=== PATIENT | female | born 1975 | race Caucasian/White ===

== ENCOUNTER → 2016-11-21 | Outpatient (CLI) | payer OTHER | LOC: CARD 08:10 | PROVIDERS: ATTEND Obstetrics & Gynecology | DX: R00.2 Palpitations (principal) | CPT/HCPCS: 93005 ==

== ENCOUNTER → 2020-12-16 | Outpatient (CLI) | payer BC ==
--- NOTE | 2020-12-16 11:12 | Diagnostic Imaging Report ---
PROCEDURE: Pelvic comp/transvaginal sonogram. TECHNIQUE: Complete transabdominal and transvaginal pelvic ultrasound was performed. In addition, limited pelvic Doppler was performed. INDICATION: Excessive and frequent menstruation. Uterus is anteverted measuring 8.4 x 4.7 x 5.5 cm. Endometrium is 4 mm in thickness. There is an area of heterogeneity in the anterior uterine body approximately 1 cm in size, likely a small fibroid. Right ovary cannot be visualized due to bowel gas. Left ovary measures 4.4 x 3.5 x 3.8 cm. A left ovary does contain a septated cyst measuring 3.6 x 3.0 x 3.2 cm. There is blood flow to the left ovary. No free fluid is identified. IMPRESSION: 1. Small uterine fibroid. 2. Nonvisualized right ovary. 3. 3.6 x 3.0 similar septated left ovarian cyst. Followup in 6-8 weeks could be performed to confirm clearing. Dictated by: Dictated on workstation # [id number]
--- NOTE | 2020-12-19 15:31 | Diagnostic Imaging Report ---
INDICATION: Routine screening. COMPARISON: 10/20/2018 and 12/02/2017. TECHNIQUE: 2D and 3D bilateral screening mammography was performed with CAD. FINDINGS: Both breasts show marked parenchymal heterogeneity and increased density, limiting the sensitivity of mammography. There are multiple circumscribed masses throughout both breasts which have been shown to represent cysts previously. There are benign calcifications scattered throughout both breasts. No spiculated mass or malignant appearing microcalcifications are seen. The axillae are unremarkable. IMPRESSION: No mammographic features suspicious for malignancy are identified. ACR BI-RADS Category 2: Benign findings. Result letter will be mailed to the patient. Note: At least 10% of breast cancer is not imaged by mammography. Dictated by: Dictated on workstation # [id number]
== END ==
LOC: RAD 09:45
PROVIDERS: ATTEND Nurse Practitioner Family
DX: Z12.31 Encounter for screening mammogram for malignant neoplasm of breast (principal); D25.9 Leiomyoma of uterus, unspecified; N83.202 Unspecified ovarian cyst, left side; Z80.3 Family history of malignant neoplasm of breast
CPT/HCPCS: 76830; 76856; 77063; 77067

== ENCOUNTER → 2021-04-14 | Outpatient (CLI) | payer BC ==
--- NOTE | 2021-04-14 14:08 | Diagnostic Imaging Report ---
PROCEDURE: CT abdomen and pelvis without contrast. TECHNIQUE: Multiple contiguous axial images were obtained through the abdomen and pelvis without the use of intravenous contrast. Auto Exposure Controls were utilized during the CT exam to meet ALARA standards for radiation dose reduction. INDICATION: Frequent urinary tract infections and microhematuria. COMPARISON: No prior studies are available for comparison. FINDINGS: The lung bases are clear. The liver and gallbladder are unremarkable. There is no biliary ductal dilatation. The pancreas and spleen are unremarkable. No adrenal mass is detected. The right kidney contains a 2 mm nonobstructing calculus in the upper pole. Left kidney is unremarkable. No definite ureteral calculi or hydronephrosis is seen. Aorta is nonaneurysmal. Bowel loops are normal in caliber. There is no obstruction. No free fluid or fluid collection is seen. The uterus and bladder are unremarkable. 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 IMPRESSION: 1. Tiny non-nonobstructing right renal calculus. No ureteral calculi or hydronephrosis is detected. 2. Study is otherwise unremarkable. Dictated by: Dictated on workstation # [id number]
== END ==
LOC: RAD 11:45
PROVIDERS: ATTEND Urology
DX: N20.0 Calculus of kidney (principal)
CPT/HCPCS: 74176

== ENCOUNTER → 2022-01-26 | Outpatient (CLI) | payer BC ==
--- NOTE | 2022-01-26 13:18 | Diagnostic Imaging Report ---
Indication: Routine screening. Comparison is made with prior mammograms from 12/16/2020 and 10/20/2018. 2-D and 3-D bilateral screening mammography was performed with CAD. Both breasts are heterogeneously dense, limiting the sensitivity of mammography. Circumscribed rounded masses are again noted suggestive of cysts. There are scattered benign calcifications. No spiculated mass or malignant-appearing microcalcifications are seen. Axillae are unremarkable. IMPRESSION: BI-RADS Category 2 No mammographic features suspicious for malignancy are identified. ACR BI-RADS Category 2: Benign findings. Result letter will be mailed to the patient. Note: At least 10% of breast cancer is not imaged by mammography. Dictated by: Dictated on workstation # [id number]
== END ==
LOC: RAD 10:30
PROVIDERS: ATTEND Obstetrics & Gynecology
DX: Z12.31 Encounter for screening mammogram for malignant neoplasm of breast (principal)
CPT/HCPCS: 77063; 77067

== ENCOUNTER → 2022-05-07 | Outpatient (CLI) | payer BC ==
--- NOTE | 2022-05-07 11:14 | Diagnostic Imaging Report ---
PROCEDURE: CT abdomen and pelvis without contrast. TECHNIQUE: Multiple contiguous axial images were obtained through the abdomen and pelvis without the use of intravenous contrast. Auto Exposure Controls were utilized during the CT exam to meet ALARA standards for radiation dose reduction. INDICATION: Hematuria. Comparison is made with prior CT from 04/14/2021. The lung bases are clear. The liver, gallbladder, pancreas, spleen and adrenal glands are unremarkable. Previously noted small nonobstructing calculus in the upper pole right kidney is again noted. No ureteral or bladder calculi are detected. Aorta is nonaneurysmal. The bowel loops are normal caliber. There is no obstruction. There is no ascites. Uterus is unremarkable. The bony structures are nonacute. Spondylolysis and spondylolisthesis at L5-S1 is again noted. IMPRESSION: Stable noncontrast CT of the abdomen and pelvis when compared with examination one year earlier. Nonobstructive calculus on the right is again noted. There is no ureteral calculi or hydronephrosis. Dictated by: Dictated on workstation # [id number]
== END ==
LOC: RAD 09:45
PROVIDERS: ATTEND Urology
DX: N20.0 Calculus of kidney (principal)
CPT/HCPCS: 74176

== ENCOUNTER 2022-06-01 05:30 | Outpatient (CLI) | payer BC ==
[~2022-06-01] VITALS: Ht 159 cm; Wt 77.0 kg
[2022-06-01] MEDS ORDERED: RT-ALBUINH INH (16:22)
[2022-06-01] MEDS ORDERED: NORE0.3561 PO (16:22)
== END 2022-06-01 16:43 | disposition home or self-care (01) ==
LOC: PREOP 05:30
PROVIDERS: ATTEND Obstetrics & Gynecology
DX: Z01.818 Encounter for other preprocedural examination (principal)

== ENCOUNTER 2022-06-08 06:08 | Day surgery (SDC) | payer BC ==
[~2022-06-08] VITALS: Ht 159 cm; Wt 77.0 kg
[2022-06-08] VITALS (12 sets, daily range): BP systolic 83–125; BP diastolic 59–80
[~2022-06-08 06:08] MED LIST: NORE0.3561 PO; RT-ALBUINH INH
[2022-06-08] MEDS ORDERED: ceFAZolin INJECTION 1,000 MG in NS (IVPB) 50 ML IV ONE (06:15)
[2022-06-08] MEDS ORDERED: LACTATED RINGERS 1,000 ML IV PRN (06:15)
[2022-06-08] MEDS ORDERED: LIDOCAINE/EPI 1%-1:100,000 (XYLOCAINE) 10 ML ONE (06:53)
[2022-06-08] MEDS ORDERED: ESTRADIOL VAGINAL CREAM 42.5 GM (ESTRACE) VG ONE (06:53)
[2022-06-08 06:56] LABS: BASOPHILS % (AUTO) 1 % (0-10); EOSINOPHILS % (AUTO) 1 % (0-10); HEMATOCRIT 39 % (35-52); HEMOGLOBIN 13.3 g/dL (11.5-16.0); LYMPHOCYTES # (AUTO) 2.1 10^3/uL (1.0-4.0); LYMPHOCYTES % (AUTO) 26 % (12-44); MEAN CORPUSCULAR HEMOGLOBIN 32 pg (25-34); MEAN CORPUSCULAR HGB CONC 34 g/dL (32-36); MEAN CORPUSCULAR VOLUME 95 fL (80-99); MEAN PLATELET VOLUME 9.3 fL (9.0-12.2); MONOCYTES # (AUTO) 0.5 10^3/uL (0.0-1.0); MONOCYTES % (AUTO) 6 % (0-12); NEUTROPHILS # (AUTO) 5.6 10^3/uL (1.8-7.8); NEUTROPHILS % (AUTO) 67 % (42-75); PLATELET COUNT 286 10^3/uL (130-400); WHITE BLOOD COUNT 8.3 10^3/uL (4.3-11.0)
--- NOTE | 2022-06-08 07:20 | Progress Note-Pre Operative ---
Pre-Operative Progress Note Date of Available H&P: Jun 08, 2022 Date H&P Reviewed: Jun 08, 2022 Time H&P Reviewed: 07:20 History & Physical: H&P Reviewed, No changes noted Pre-Operative Diagnosis: Menorrhagia/uterovaginal prolapse/stress urinary incontinence/BRANDON-1 LULU HEWITT MD Jun 08, 2022 07:20
--- NOTE | 2022-06-08 07:21 | Progress Note-Post Operative ---
Post-Operative Progess Note Surgeon (s)/Caterpillar Tractor Operator (s) Surgeon LULU HEWITT MD [employer] Tractor Operator: Mary Pre-Operative Diagnosis Menorrhagia/uterovaginal prolapse/stress urinary incontinence/BRANDON-1 Post-Operative Diagnosis Same with pathology pending Procedure & Operative Findings Date of Procedure 06/08/22 Procedure Performed/Findings Total laparoscopic hysterectomy with bilateral salpingectomies as well as anterior and posterior vaginal repairs with Dr. Kendall doing a pubovaginal sling and Cystoscopy Anesthesia Type General Estimated Blood Loss Estimated blood loss (mL): 200cc Specimens/Packing Specimens Removed Uterus and fallopian tubes LULU HEWITT MD Jun 08, 2022 07:21
[2022-06-08] MEDS ORDERED: DOCU100C37 PO (07:24)
[2022-06-08] MEDS ORDERED: IBUP-1780 PO (07:24)
[2022-06-08] MEDS ORDERED: OXYC-199 PO (07:24)
--- NOTE | 2022-06-08 07:25 | Discharge Inst-Surgical ---
Discharge Inst-Surgical Depart Medication/Instructions New, Converted or Re-Newed RX: Transmitted to Pharmacy Consults/Follow Up Patient Instructions: As directed Orders & Referrals Follow Up Appt: Return to clinic in 1 week for suture removal Call to make follow up appt. for patient in 4 weeks. Activity: Rest for 24 hours, than as tolerated. Wound Care: May remove Band-Aid tomorrow. Replace as desired. Keep incisions clean and dry. Wash daily with soap and water. Prescriptions have been transmitted electronically for Percocet Motrin and Colace Diet: As tolerated shower or tub bathe as desired. No driving for 24 hours, no alcoholic beverages for 24 hours, and nothing per vagina (no tampons, douching, or intercourse) for 8 weeks. Patient to return to the clinic as soon as possible for: Temperature greater than 101F, Severe Pain, Foul discharge from incision or vagina, Excessive Bleeding (more than a period). Activity Activity as Tolerated: No Diet Discharge Diet: No Restrictions LULU HEWITT MD Jun 08, 2022 07:25
[2022-06-08] MEDS ORDERED: fentaNYL INJ 100 MCG/2 ML AMP ONE (07:27)
[2022-06-08] MEDS ORDERED: MIDAZOLAM 2 MG/2 ML (VERSED) VIAL ONE (07:27)
[2022-06-08] MEDS ORDERED: ONDANSETRON 4 MG/2 ML (SDV) Z0FRAN IVP PRN ×2 (07:30→10:00)
[2022-06-08] MEDS ORDERED: BENZOCAINE/MENTHOL (DERMOPLAST) 56 ML CAN TP PRN (07:30)
[2022-06-08] MEDS ORDERED: ESTROGENS CONJ INJECTION 25 MG in WATER (STERILE) FOR INJECTION 5 ML IV ONE (07:30)
--- NOTE | 2022-06-08 09:11 | Progress Note-Post Operative ---
Post-Operative Progess Note Surgeon (s)/Fiberglass Finisher (s) Surgeon DOREEN ESPINOZA MD Fiberglass Finisher: LULU HEWITT MD Pre-Operative Diagnosis ADRIANNA Post-Operative Diagnosis SAME Procedure & Operative Findings Date of Procedure 06/08/22 Procedure Performed/Findings PVS AND CYSTOSCOPY Anesthesia Type GENERAL Estimated Blood Loss Estimated blood loss (mL): NEGLIGIBLE Specimens/Packing Specimens Removed NONE PackinGM ESTRACE PACK DOREEN ESPINOZA MD Jun 08, 2022 09:10
[2022-06-08] MEDS ORDERED: proPOfol 200 MG/20 ML (DIPRIVAN) VIAL IV ONE (09:27)
[2022-06-08] MEDS ORDERED: ROCURONIUM 10 MG/ML 5 ML SYRINGE IV ONE (09:27)
[2022-06-08] MEDS ORDERED: ONDANSETRON 4 MG/2 ML (SDV) Z0FRAN ONE (09:27)
[2022-06-08] MEDS ORDERED: LIDOCAINE PF 2% 5 ML (XYLOCAINE) VIAL ONE (09:27)
[2022-06-08] MEDS ORDERED: KETOROLAC 30 MG/ML VIAL ONE (09:27)
[2022-06-08] MEDS ORDERED: SEVOFLURANE (ULTANE) 15 ML INHAL SOLN ONE (09:28)
[2022-06-08] MEDS ORDERED: HYDROmorphone 2 MG/ML VIAL (DILAUDID) ONE (09:29)
[2022-06-08] MEDS ORDERED: ESTROGENS CONJ INJECTION 5 ML ONE (09:32)
[2022-06-08] MEDS ORDERED: WATER (STERILE) FOR INJECTION 10 ML ONE (09:32)
[2022-06-08] MEDS ORDERED: HYDROmorphone 2 MG/ML VIAL (DILAUDID) IV ONE (10:00)
--- NOTE | 2022-06-08 10:00 | Anesthesia-General Post-Op ---
General Patient Condition Mental Status/LOC: Same as Preop Cardiovascular: Satisfactory Nausea/Vomiting: Absent Respiratory: Satisfactory Pain: Controlled Complications: Absent Post Op Complications Complications None Follow Up Care/Instructions Patient Instructions None needed. Anesthesia/Patient Condition Patient Condition Patient is doing well, no complaints, stable vital signs, no apparent adverse anesthesia problems. No complications reported per nursing. LOC SHRESTHA CRNA Jun 08, 2022 10:00
[2022-06-08] MEDS: oxyCODONE/APAP 5/325MG (PERCOCET 5) TABLET PO PRN ×2 (11:22→18:14)
[2022-06-08] MEDS: D5 LR IV SOLUTION 1,000 ML IV SCH ×2 (11:37→20:06)
--- NOTE | 2022-06-08 12:53 | OPERATIVE REPORT ---
DATE OF SERVICE: 06/08/2022 PREOPERATIVE DIAGNOSIS: On my part stress urinary incontinence. POSTOPERATIVE DIAGNOSIS: On my part stress urinary incontinence. OPERATION PERFORMED: Pubovaginal sling and cystoscopy. SURGEON: Doreen Espinoza MD FIREFIGHTER MARINE: Javier South MD ANESTHESIA: General. COMPLICATIONS: None. DESCRIPTION OF PROCEDURE: After Dr. South performed the first part of his surgery that he will dictate, I went ahead and passed the Desara one sling instrument using the described technique. The sling was sitting nicely under the mid urethra with no tension and no twist and passage of a curved hemostat easily between it and the underlying urethra. I removed the Zaman catheter and performed cystoscopy that was negative. There was no foreign body, no injury and the sling under the mid urethra. I left the bladder half full, removed the cystoscope and performed a Valsalva maneuver manually and it was negative. I reinserted the Zaman catheter draining clear urine. Estimated blood loss for my part negligible and Dr. South proceeded with the rest of his surgery that he will dictate. Job ID: [id number] DocumentID: [id number] Dictated Date: 06/08/2022 09:12:59 Transformer Builder Date: 06/08/2022 12:51:00 Dictated By: DOREEN ESPINOZA MD
[2022-06-08] MEDS: KETOROLAC 30 MG/ML VIAL IV SCH ×2 (16:01→22:26)
[2022-06-09 00:03] VITALS: BP 103/58
[2022-06-09] MEDS: KETOROLAC 30 MG/ML VIAL IV SCH (03:43)
[2022-06-09 03:45] VITALS: BP 128/94
--- NOTE | 2022-06-09 05:58 | OPERATIVE REPORT ---
DATE OF SERVICE: 06/08/2022 PREOPERATIVE DIAGNOSIS: Menorrhagia and menometrorrhagia, uterovaginal prolapse with stress urinary incontinence and BRANDON 1. POSTOPERATIVE DIAGNOSIS: Menorrhagia and menometrorrhagia, uterovaginal prolapse with stress urinary incontinence and BRANDON 1. PROCEDURE: Total laparoscopic hysterectomy with bilateral salpingectomies as well as anterior and posterior vaginal repairs with enterocele repair and with a pubovaginal sling and cystoscopy that were performed by Dr. Nino. DESCRIPTION OF PROCEDURE: With the patient in the supine position under satisfactory general anesthesia, the patient repositioned in dorsal lithotomy position in the [facility] and prepped and draped in the usual fashion for abdominal and vaginal surgery using robotic/da Zeynep assistance. A weighted speculum was placed in the posterior fornix of the vagina. The cervix was exposed and grasped anteriorly with single tooth tenaculum. The uterus was sounded to 12 cm with uterine sound. The cervix was then serially dilated with Bipin dilators to accommodate a JAMA II manipulator, which was placed with a 6 mm x 8 cm uterine probe and a 35 mm colpotomy ring. #1 Vicryl sutures were placed at 3 and 9 o'clock position of the cervix to affix the uterus to the manipulator. The tenaculum and speculum were removed after a Zaman catheter was placed in the urinary bladder. A 12 mm incision was made, 10 cm superior to the umbilicus. Veress needle was placed through that incision into the abdominal cavity. Correct placement was confirmed with a water drop test. The abdomen was insufflated with 2.7 liters of carbon dioxide. The Veress needle was then removed and a 12 mm Optiview laparoscopic port placed. The abdominal wall was transilluminated 8 mm ports were placed 8 cm lateral to the umbilicus and about 3 cm superior to the umbilicus. The patient was now placed in Trendelenburg allowing the bowel was filled up out of the pelvis. The da Zeynep column was advanced on the patient, docked and operative instruments were placed in the right and left lateral ports and I retired to the da Zeynep console. At the console using the vessel sealer on the right and bipolar fenestrated grasper on the left, the pelvis was first examined. The appendix was seen. It was a normal vermiform appendix and it was left in situ. Both fallopian tubes showed evidence of tubal sterilization. The ovaries were inactive appearing, but otherwise normal. The uterus was somewhat large bulky and globular. The attention was turned to the right fallopian tube and ovary. Decision was then made to conserve the ovaries. The right fallopian tube was grasped and elevated. The mesosalpinx was clamped, cauterized, and divided with the vessel sealer. This was continued stepwise across the mesosalpinx to the utero-ovarian pedicle. The uteroovarian pedicle was then clamped, cauterized, and divided as well as was the round ligament, the broad ligament and dissection was carried down to the cardinal ligament. Same procedure was performed on the left, allowing for conservation of both ovaries and removal of both fallopian tubes. The anterior lower uterine segment was now exposed and the bladder peritoneum divided with monopolar waldo in place of the vessel sealer. The bladder was carefully dissected down off the lower uterine segment and colpotomy incision was started at the 12 o'clock position of the lower uterine segment. The colpotomy ring was exposed circumferentially until the entire ring was exposed and then the uterus with the fallopian tube still attached was extracted through the vagina. The vaginal cuff was closed with a single suture of V-Loc barbed suture starting from the right angle and continuing all the way across to the left angle, taking care to ensure inclusion of the uterine vessel pedicles with the closure. Hemostasis complete and no abnormal pathology. The laparoscopic portion of the procedure was halted. The operative instruments were removed under direct vision as were the ports. The abdomen was evacuated of the insufflating gas in the process of removing the ports. The skin incisions were closed with nylon sutures. The fascia at the supraumbilical incision was closed with a [id number] suture of 2-0 Vicryl. The patient was now repositioned into the dorsal lithotomy position for the vaginal portion of the procedure. Kamille clamps were placed on the anterior vaginal wall with a weighted speculum in the posterior fornix of the vagina. The vaginal wall was opened in the midline with Metzenbaum scissors, which allowed for dissecting of the vaginal wall off of the bladder back to the pubic rami bilaterally. The endopelvic fascia and the bladder wall was then plicated with 2-0 Vicryl sutures, elevating the bladder and lengthening the urethra. At this point, Dr. Nino assumed care of the patient for a pubovaginal sling, cystoscopy. I remained to assist. Upon completion of Dr. Nino's portion of the procedure, the Zaman catheter was placed to dependent drainage and left. I resumed care of the patient and resected the redundant anterior vaginal muscularis and mucosa and then closed the vaginal wall with a running locked suture of 3-0 Vicryl Rapide. Hemostasis was complete and good support was evident. Posterior repair was not affected by placing Kamille clamps on the perineum and the hymenal ring at 5 and 7 o'clock position. An inverted triangle of skin was removed from the perineal body and upright triangle from the posterior vaginal floor. The rectovaginal space was entered sharply and dissected bluntly to the apex of the vagina. It was explored. There was a small enterocele noted. The enterocele was reduced and then plicated with 2-0 Vicryl pursestring suture. With the enterocele obliterated, the rectovaginal space was now obliterated with additional sutures of 2-0 Vicryl. Perineal body was restored with 2-0 Vicryl as well. Redundant posterior vaginal muscularis and mucosa was removed sharply. The vaginal wall was closed with a running locked suture of 3-0 Vicryl Rapide. The closure was continued past the hymenal ring down on the perineal body and then back up subcutaneous to the hymenal ring where the suture was tied. The vaginal incisions were examined. Hemostasis being complete, the vaginal vault was filled with Estrace vaginal cream and a pack of Kerlix gauze was placed. The Zaman catheter was left to dependent drainage. Digital rectal exam confirmed no stricture or stenosis into the rectum or through the rectal mucosa. With sponge and needle counts correct and hemostasis assured, the procedure was terminated. Blood loss was around 200 mL for the entire procedure. The patient was uneventfully awakened from her general anesthesia and transferred to the recovery room in stable condition. Job ID: [id number] DocumentID: [id number] Dictated Date: 06/08/2022 20:16:59 Interactive Digital Media Specialist Date: 06/09/2022 05:55:00 Dictated By: LULU HEWITT MD
[2022-06-09] MEDS ORDERED: IBUPROFEN 800 MG (MOTRIN) TAB PO SCH (07:30)
[2022-06-09 08:00] VITALS: BP 119/62
[2022-06-09] MEDS: oxyCODONE/APAP 5/325MG (PERCOCET 5) TABLET PO PRN (08:06)
--- NOTE | 2022-06-09 08:51 | Progress Note ---
Standard Progress Note Progress Notes/Assess & Plan Date Seen by a Provider: Jun 09, 2022 Time Seen by a Provider: 08:49 Progress/Assessment & Plan This patient is without complaint. She is ambulating, tolerating oral intake well and has good pain control. Patient has not voided as of yet. Bladder trial is ongoing. Patient denies chest pain, denies shortness of breath, denies nausea vomiting, and denies headache. Vital Signs Date Time Temp Pulse Resp B/P (MAP) Pulse Ox O2 Delivery O2 Flow Rate FiO2 06/09/22 08:00 37.0 95 18 119/62 (81) 98 Room Air 06/09/22 03:45 37.0 115 18 128/94 (105) 97 Room Air 06/09/22 00:03 36.8 84 18 103/58 (73) 97 Room Air 06/08/22 19:50 36.5 78 16 104/59 (74) 96 Room Air 06/08/22 18:00 36.8 92 16 115/76 (89) 98 Room Air 06/08/22 13:40 37.1 86 16 111/79 (90) 100 Nasal Cannula 2.00 06/08/22 11:40 36.9 88 16 111/74 (86) 97 Room Air 06/08/22 10:40 36.9 98 16 122/65 (84) 97 Room Air 06/08/22 10:35 Room Air 06/08/22 10:30 36.8 16 104/72 (83) 98 Room Air 06/08/22 10:25 Room Air 06/08/22 10:20 14 104/75 (85) 99 OxyMask 2.00 06/08/22 10:10 OxyMask 2.00 06/08/22 10:10 14 112/64 (80) 100 OxyMask 2.00 06/08/22 10:00 14 111/69 (83) 100 OxyMask 2.00 06/08/22 09:55 OxyMask 4.00 06/08/22 09:50 14 115/77 (90) 100 OxyMask 4.00 06/08/22 09:41 OxyMask 6.00 06/08/22 09:41 37.0 14 83/69 (74) 100 OxyMask 6.00 I & O 06/09/22 07:00 Intake Total 4110 ml Output Total 2275 ml Balance 1835 ml Vital signs are stable. Patient is afebrile. The abdomen is benign. Extremities show no clubbing cyanosis. There is no Homans' sign. Pelvic exam is deferred Assessment and plan Postoperative day #1 doing well. Plan is for routine convalescent care with discharge home when patient demonstrates adequate bladder function as she is already tolerating oral intake has good pain control and is ambulating Final Diagnosis Uterovaginal prolapse/stress urinary incontinence/menorrhagia LULU HEWITT MD Jun 09, 2022 08:51
[2022-06-09] MEDS ORDERED: OXYC-473 PO (08:56)
[2022-06-09] MEDS ORDERED: DOCUSATE SODIUM 100 MG (COLACE) CAP PO SCH (09:00)
[2022-06-09 11:43] VITALS: BP 119/62
== END 2022-06-09 11:51 | disposition home or self-care (01) ==
LOC: SDC 06:08 → WS 10:51 → SDC 06-09 11:51
PROVIDERS: ATTEND Obstetrics & Gynecology
DX: D25.1 Intramural leiomyoma of uterus (principal); N39.3 Stress incontinence (female) (male); N80.03 Adenomyosis of the uterus; D25.2 Subserosal leiomyoma of uterus; N81.4 Uterovaginal prolapse, unspecified; N87.0 Mild cervical dysplasia; L90.0 Lichen sclerosus et atrophicus; F17.210 Nicotine dependence, cigarettes, uncomplicated
CPT/HCPCS: 57265; 57288; 58571; 84703; 85025; 87081; 94664; C1771; 36415; 88305; 88307; 88341; 88342

== ENCOUNTER 2022-06-14 10:40 | Emergency (ER) | payer BC ==
[~2022-06-14] VITALS: Ht 162 cm; Wt 73.0 kg
[~2022-06-14 10:40] MED LIST changes: +DOCU100C37 PO; +IBUP-1780 PO; +OXYC-199 PO; +OXYC-473 PO
[2022-06-14 11:28] LABS: BASOPHILS % (AUTO) 0 % (0-10); EOSINOPHILS # (AUTO) 0.1 10^3/uL (0.0-0.3); EOSINOPHILS % (AUTO) 1 % (0-10); HEMATOCRIT 32 % (35-52); HEMOGLOBIN 10.9 g/dL (11.5-16.0); LYMPHOCYTES # (AUTO) 2.2 10^3/uL (1.0-4.0); LYMPHOCYTES % (AUTO) 22 % (12-44); MEAN CORPUSCULAR HEMOGLOBIN 32 pg (25-34); MEAN CORPUSCULAR HGB CONC 34 g/dL (32-36); MEAN CORPUSCULAR VOLUME 93 fL (80-99); MEAN PLATELET VOLUME 9.5 fL (9.0-12.2); MONOCYTES # (AUTO) 0.7 10^3/uL (0.0-1.0); MONOCYTES % (AUTO) 7 % (0-12); NEUTROPHILS # (AUTO) 7.2 10^3/uL (1.8-7.8); NEUTROPHILS % (AUTO) 70 % (42-75); PLATELET COUNT 390 10^3/uL (130-400); WHITE BLOOD COUNT 10.3 10^3/uL (4.3-11.0)
[2022-06-14] MEDS ORDERED: NS 100 ML (IVPB) BAG IV ONE (11:30)
[2022-06-14] MEDS ORDERED: IOHEXOL 350 MG/ML 100 ML (OMNIPAQUE 350) VIAL IV ONE (11:30)
[2022-06-14] MEDS ORDERED: HOLD METFORMIN - RECEIVED CONTRAST 20 ML VIAL IV SCH (11:30)
[2022-06-14 11:32] LABS: ALBUMIN 3.7 GM/DL (3.2-4.5)
[2022-06-14 11:33] LABS: POTASSIUM 3.4 MMOL/L (3.6-5.0)
[2022-06-14 11:34] LABS: CALCIUM 9.1 MG/DL (8.5-10.1)
[2022-06-14 11:35] LABS: TOTAL PROTEIN 7.2 GM/DL (6.4-8.2)
[2022-06-14 11:35] LABS: CLARITY,URINE CLOUDY; COLOR,URINE ORANGE; GLUCOSE, URINE (UA) NEGATIVE (NEGATIVE); KETONES,URINE 1+ (NEGATIVE); LEUKOCYTE ESTERASE ,URINE 1+ (NEGATIVE); NITRITE,URINE NEGATIVE (NEGATIVE); PROTEIN,URINE TRACE (NEGATIVE)
[2022-06-14 11:37] LABS: BILIRUBIN,TOTAL 0.4 MG/DL (0.1-1.0)
[2022-06-14 11:39] LABS: CREATININE SERUM 0.72 MG/DL (0.60-1.30)
[2022-06-14 11:52] LABS: AMORPHOUS SEDIMENT,UR FEW AMOR PHOSPHATE /LPF; BACTERIA,URINE MODERATE /HPF; BILIRUBIN,URINE NEGATIVE (NEGATIVE); RBC,URINE 50-100 /HPF
--- NOTE | 2022-06-14 11:58 | ED Abdominal Pain ---
General Chief Complaint: - Reproductive Stated Complaint: POST OP POSSIBLE INFECTION | ABD PAIN Nursing Triage Note: PT AMB FROM DR SOUTH OFFICE, PT HAD SURG ON 06/08 HYST W REPAIR, PT WAS SENT TO ED, PT STATES DR SOUTH THINKS MAY HAVE INFECTION FROM SURG. PT DENIES FEVERS HAD PAIN IN PELVIC FLOOR INTERMITTENTLY /. PT DENIES PAIN AT THIS X Source of Information: Patient Exam Limitations: No Limitations History of Present Illness Date Seen by Provider: Jun 14, 2022 Time Seen by Provider: 11:05 Initial Comments Patient is a 47-year-old female who presents to the emergency department for evaluation of lower abdominal and pelvic pain in the context of a recent hysterectomy and bladder repair/sling procedure. This was done laparoscopically by Dr. South and Dr. Robison on June 08. Patient began having these intermittent severe crampy pains at the beginning of this week. She followed up with Dr. South Saturday where it was recommended she utilize MiraLAX to help with any potential constipation. She states she took several doses y esterday and had some liquid bowel movements without passing anything solid. She states the intermittent pains were more frequent yesterday than they have been today. She states she also has issues initiating a urine stream and feels like she does not fully empty her bladder. She states that when the pains occur they last approximately 15 to 30 seconds before resolving. She states that she also has some vaginal and/or urethral bleeding at the time she has the pains. She states the bleeding is small in amount and bright red in color. She followed up in the office today with Dr. South who told her to present to the emergency department for evaluation as he was concerned for possible infection. Patient did have the lawanda removed from her laparoscopy sites. She had her uterus and fallopian tubes removed but her ovaries were left in situ. She has not had a fever and states that she has minimal pain outside of when these episodic painful events occur. She states she was able to ambulate. She has been able to eat and drink. Denies any significant nausea. The hysterectomy/bladder procedure was performed due to patient having a prolonged history of menorrhagia and uterine enlargement causing stress/urge incontinence. Allergies and Home Medications Allergies Coded Allergies: No Known Drug Allergies (Unverified , 06/01/22) Patient Home Medication List Home Medication List Reviewed: Yes Albuterol Sulfate (Proventil Hfa) 6.7 Gm Hfa.aer.ad, 2 PUFF INH Q6H, (Reported) Entered as Reported by: HUMAIRA SIMMONS on 06/01/221621 Docusate Sodium (Docusate Sodium) 100 Mg Capsule, 100 MG PO BID Prescribed by: LULU GARCIA on 06/08/22 07 Ibuprofen (Ibuprofen) 800 Mg Tablet, 800 MG PO Q6H PRN for PAIN Prescribed by: LULU GARCIA on 06/08/22 0724 Oxycodone HCl (Roxicodone) 5 Mg Tablet, 5 MG PO Q6H Prescribed by: LULU GARCIA on 06/09/22 0857 Oxycodone HCl/Acetaminophen (Percocet 5-325 mg Tablet) 5 Mg-325 Mg Tablet, 1 TAB PO Q4H PRN for PAIN-MODERATE Prescribed by: LULU GARCIA on 06/08/22 0724 Discontinued Medications Norethindrone (Jencycla) 0.35 Mg Tablet, 0.35 MG PO UD, (Reported) Entered as Reported by: HUMAIRA SIMMONS on 06/01/221621 Review of Systems Review of Systems Constitutional: no symptoms reported EENTM: No Symptoms Reported Respiratory: No Symptoms Reported Cardiovascular: No Symptoms Reported Gastrointestinal: See HPI, Abdominal Pain Genitourinary: See HPI Musculoskeletal: no symptoms reported Skin: no symptoms reported Psychiatric/Neurological: No Symptoms Reported Endocrine: No Symptoms Reported Hematologic/Lymphatic: No Symptoms Reported Past Ahfnpxm-Lcyepf-Crjpzt Hx Patient Social History Tobacco Use?: Yes Tobacco type used: Cigarettes Smoking Status: Current Everyday Smoker Substance use?: No Alcohol Use?: No Pt feels they are or have been: No Immunizations Up To Date First/Initial COVID19 Vaccinat: 2020 Second COVID19 Vaccination Codey: 2020 Third COVID19 Vaccination Date: 2020 Seasonal Allergies Seasonal Allergies: No Past Medical History Surgery/Hospitalization HX: 06/08/22 HYST W PELVIC REPAIR, [facility] Surgeries: Yes (WISDOM TEETH) Respiratory: Yes Asthma Currently Using CPAP: No Currently Using BIPAP: No Cardiac: No Neurological: No Female Reproductive Disorders: Menstrual Problems Genitourinary: Yes ([employer]) Gastrointestinal: Yes Gastroesophageal Reflux Musculoskeletal: No Endocrine: No HEENT: No Cancer: No Psychosocial: No Integumentary: Yes Blood Disorders: Yes (ANEMIA) Physical Exam Vital Signs Vital Signs - First Documented 06/14/22 10:45 Temp 36.4 Pulse 109 Resp 18 B/P (MAP) 136/77 (96) Pulse Ox 98 Capillary Refill : Less Than 3 Seconds Height/Weight/BMI Height: '" Weight: lbs. oz. kg; 27.00 BMI Method: General Appearance: WD/WN, no apparent distress HEENT: PERRL/EOMI, normal ENT inspection, TMs normal, pharynx normal Neck: non-tender, full range of motion, supple, normal inspection Respiratory: chest non-tender, lungs clear, normal breath sounds, no respiratory distress, no accessory muscle use Cardiovascular: regular rate, rhythm Gastrointestinal: normal bowel sounds, non tender, soft Extremities: normal range of motion, non-tender, normal inspection Back: normal inspection, no vertebral tenderness Neurologic/Psychiatric: no motor/sensory deficits, alert, normal mood/affect, oriented x 3 Skin: normal color, warm/dry Exam Comments 3 laparoscopy sites noted to the abdomen; Steri-Strips are intact to the site; no surrounding erythema or cellulitic changes noted Progress/Results/Core Measures Results/Orders Lab Results Laboratory Tests Test 06/14/22 10:55 06/14/22 11:09 Range/Units White Blood Count 10.3 4.3-11.0 10^3/uL Red Blood Count 3.42 L 3.80-5.11 10^6/uL Hemoglobin 10.9 L 11.5-16.0 g/dL Hematocrit 32 L 35-52 % Mean Corpuscular Volume 93 80-99 fL Mean Corpuscular Hemoglobin 32 25-34 pg Mean Corpuscular Hemoglobin Concent 34 32-36 g/dL Red Cell Distribution Width 12.2 10.0-14.5 % Platelet Count 390 130-400 10^3/uL Mean Platelet Volume 9.5 9.0-12.2 fL Immature Granulocyte % (Auto) 1 % Neutrophils (%) (Auto) 70 42-75 % Lymphocytes (%) (Auto) 22 12-44 % Monocytes (%) (Auto) 7 0-12 % Eosinophils (%) (Auto) 1 0-10 % Basophils (%) (Auto) 0 0-10 % Neutrophils # (Auto) 7.2 1.8-7.8 10^3/uL Lymphocytes # (Auto) 2.2 1.0-4.0 10^3/uL Monocytes # (Auto) 0.7 0.0-1.0 10^3/uL Eosinophils # (Auto) 0.1 0.0-0.3 10^3/uL Basophils # (Auto) 0.0 0.0-0.1 10^3/uL Immature Granulocyte # (Auto) 0.1 0.0-0.1 10^3/uL Sodium Level 139 135-145 MMOL/L Potassium Level 3.4 L 3.6-5.0 MMOL/L Chloride Level 106 98-107 MMOL/L Carbon Dioxide Level 22 21-32 MMOL/L Anion Gap 11 5-14 MMOL/L Blood Urea Nitrogen 8 7-18 MG/DL Creatinine 0.72 0.60-1.30 MG/DL Estimat Glomerular Filtration Rate 105 BUN/Creatinine Ratio 11 Glucose Level 96 70-105 MG/DL Calcium Level 9.1 8.5-10.1 MG/DL Corrected Calcium 9.3 8.5-10.1 MG/DL Total Bilirubin 0.4 0.1-1.0 MG/DL Aspartate Amino Transf (AST/SGOT) 15 5-34 U/L Alanine Aminotransferase (ALT/SGPT) 15 0-55 U/L Alkaline Phosphatase 74 40-136 U/L Total Protein 7.2 6.4-8.2 GM/DL Albumin 3.7 3.2-4.5 GM/DL Urine Color ORANGE Urine Clarity CLOUDY Urine pH 7.0 5-9 Urine Specific [place] 1.025 H 1.016-1.022 Urine Protein TRACE H NEGATIVE Urine Glucose (UA) NEGATIVE NEGATIVE Urine Ketones 1+ H NEGATIVE Urine Nitrite NEGATIVE NEGATIVE Urine Bilirubin NEGATIVE NEGATIVE Urine Urobilinogen 4.0 < = 1.0 MG/DL Urine Leukocyte Esterase 1+ H NEGATIVE Urine RBC (Auto) 3+ H NEGATIVE Urine RBC 50-100 H /HPF Urine WBC 10-25 H /HPF Urine Squamous Epithelial Cells 5-10 /HPF Urine Crystals PRESENT H /LPF Urine Amorphous Sediment FEW ASHER PHOSPHATE H /LPF Urine Bacteria MODERATE H /HPF Urine Casts NONE /LPF Urine Mucus SMALL H /LPF Urine Culture Indicated YES My Orders Orders - DEON CABALLERO [facility] [facility] RESEARCH[employer] Cbc With Automated Diff (06/14/22 11:20) Comprehensive Metabolic Panel (06/14/22 11:20) Ua Culture If Indicated (06/14/22 11:20) Iv/Invasive Line Insertion .IV INSERT (06/14/22 11:20) Ct Abdomen/Pelvis W (06/14/22 11:20) Iohexol Injection (Omnipaque 350 Mg/Ml 1 (06/14/22 11:30) Received Contrast (Hold Metformin- Contr (06/14/22 11:30) Ns (Ivpb) (Sodium Chloride 0.9% Ivpb Bag (06/14/22 11:30) Urine Culture (06/14/22 11:09) Medications Given in ED Current Medications Medications Dose Ordered Sig/Eva Route Start Time Stop Time Status Last Admin Dose Admin Iohexol 100 ml ONCE ONCE IV 06/14/22 11:30 06/14/22 11:31 DC 06/14/22 11:54 80 ML Sodium Chloride 100 ml ONCE ONCE IV 06/14/22 11:30 06/14/22 11:31 DC 06/14/22 11:54 80 ML Vital Signs/I&O 06/14/22 10:45 Temp 36.4 Pulse 109 Resp 18 B/P (MAP) 136/77 (96) Pulse Ox 98 Blood Pressure Mean: 96 Progress Progress Note : Progress Note Patient is nontoxic and well-hydrated on exam. Abdominal exam reveals some global tenderness to palpation as expected after a laparoscopic surgery however there is no focal tenderness to palpation. Laparoscopy sites are well approximated with no evidence of dehiscence or infection. Vital signs are reassuring. Laboratory evaluation unremarkable. Specifically there is no leukocytosis or metabolic derangement. Patient does have very mild anemia as would be expected after recent surgical procedure. CT of the abdomen and pelvis reveals fluid collection near the vaginal cuff. Urinalysis with pyuria and hematuria although interpretation of findings is complicated by patient's recent surgery. I spoke with Dr. South at 1240 and reviewed findings. He states that given reassuring CT and reassuring labs that any abdominal infection is very unlikely. He states the fluid collection near the vaginal cuff is very likely a hematoma that is a normal finding postoperatively. States that he agrees the urinalysis is likely uninterpretable given high chance of contamination. Stated my plan was to utilize the culture results to guide any need for antimicrobial therapy. He agrees that this is the most reasonable course. Patient did finish a course of ciprofloxacin yesterday. I had a lengthy conversation with her regarding reassuring work-up today. I stated we would call her if the urine culture results any infectious process that would require antimicrobial therapy. I encouraged her to follow-up closely with Dr. South and . Return precautions for urgent symptomology discussed. Patient verbalized understanding. Departure Impression Primary Impression: Postoperative abdominal pain Disposition: HOME, SELF-CARE Condition: Stable Departure-Patient Inst. Decision time for Depature: 13:10 Referrals: LULU SOUTH MD (PCP) Primary Care Physician DOREEN ESPINOZA MD (Family) Primary Care Physician Patient Instructions: Postoperative Pain (DC) DEON CABALLERO [facility] [facility] RESEARCHER Jun 14, 2022 11:57
--- NOTE | 2022-06-14 12:19 | Diagnostic Imaging Report ---
EXAMINATION: CT abdomen and pelvis with intravenous contrast. TECHNIQUE: Multiple contiguous axial images were obtained through the abdomen and pelvis after the uneventful administration of intravenous contrast. All CT scans use one or more of the following dose optimizing techniques: automated exposure control, MA and/or KvP adjustment based on patient size and exam type or iterative reconstruction. HISTORY: Recent hysterectomy, evaluate for infection. COMPARISON: 05/07/2022 FINDINGS: Limited views of the lower thorax are unremarkable. The liver is normal without focal lesion. There is no biliary ductal dilation. Gallbladder is normal. Pancreas is normal. Spleen is normal. Adrenal glands are normal. The kidneys are normal. There is no hydronephrosis. Urinary bladder is normal. There are postsurgical changes of recent hysterectomy. There is a 7.7 x 5.3 cm rim-enhancing fluid and gas collection communicating with the vaginal cuff likely representing vaginal cuff dehiscence. Bowel is normal in caliber without obstruction or inflammation. Small amount of free air is in keeping with recent surgery. No abdominal or pelvic lymphadenopathy. Aorta is normal in caliber without aneurysm. There are no suspicious osseus lesions. There are bilateral L5 pars defects. IMPRESSION: 1. Rim-enhancing 7.7 x 5.3 cm fluid and gas collection communicating with the vaginal cuff in keeping with residual cuff dehiscence and abscess formation. Dictated by: Dictated on workstation # [id number]
[2022-06-14 13:29] VITALS: BP 118/71
== END 2022-06-14 13:29 | disposition home or self-care (01) ==
LOC: EDUNIT# 10:40 → ER 10:42
DX: G89.18 Other acute postprocedural pain (principal); R10.30 Lower abdominal pain, unspecified; D64.9 Anemia, unspecified; R82.81 Pyuria; R31.9 Hematuria, unspecified; F17.210 Nicotine dependence, cigarettes, uncomplicated
CPT/HCPCS: 36415; 74177; 80053; 81000; 85025; 87088; 99282

== ENCOUNTER → 2023-03-18 | Outpatient (CLI) | payer BC ==
--- NOTE | 2023-03-18 20:11 | Diagnostic Imaging Report ---
Indication: Routine screening. Comparison is made with prior mammograms from 01/26/2022 and 12/16/2020. Both breasts show marked parenchymal heterogeneity and increased density, limiting the sensitivity of mammography. There are numerous rounded masses throughout both breasts consistent with cysts. Multiple cysts do show some partial calcification of the cyst dodson. No spiculated mass or malignant-appearing microcalcifications are seen. Axillae are unremarkable. IMPRESSION: BI-RADS Category 2 No mammographic features suspicious for malignancy are identified. ACR BI-RADS Category 2: Benign findings. Result letter will be mailed to the patient. Note: At least 10% of breast cancer is not imaged by mammography. Dictated by: Dictated on workstation # [id number]
== END ==
LOC: RAD 14:33
PROVIDERS: ATTEND Nurse Practitioner Family
DX: Z12.31 Encounter for screening mammogram for malignant neoplasm of breast (principal)
CPT/HCPCS: 77063; 77067